=== PATIENT | male | born 1960 | race Caucasian/White ===

== ENCOUNTER 2017-05-21 07:58 | Emergency (ER) | payer BC ==
[~2017-05-21] VITALS: Ht 175.3 cm; Wt 164.6 kg
[~2017-05-21 07:58] MED LIST: IBUP-1459 PO; LISI-788 PO; SIMV-151 PO
[2017-05-21 08:05] VITALS: TEMP 36.5; Ht 175.3 cm; Wt 164.6 kg
[2017-05-21 08:52] LABS: BASO % 0.3 %; BASO ABS # 0.02 K/uL (0-0.2); COMPLETE YES; EOS % 3.3 %; HEMATOCRIT 43.6 % (42-52); IG% 0.3 %; LYMPH % 22.5 %; MEAN CORPUSCULAR HEMOGLOBIN 31.3 pg (25-34); MEAN CORPUSCULAR HGB CONC 33.3 g/dl (32-36); MONO % 11.8 %; NEUT % 61.8 %; PLATELET COUNT 134 K/uL (130-400); RED BLOOD COUNT 4.64 M/uL (4.7-6.1); WHITE BLOOD COUNT 7.54 K/uL (4.8-10.8)
[2017-05-21 09:03] LABS: INR 0.9 (0.9-1.1)
[2017-05-21] MEDS ORDERED: OMEG10007 PO (09:04)
[2017-05-21 09:14] LABS: ALB/GLOB RATIO 0.9 (0.9-2); BUN/CREATININE RATIO 22.5 (10-20); CALCIUM 8.3 mg/dl (8.5-10.1); CREATININE 0.83 mg/dl (0.60-1.40); POTASSIUM 3.9 mmol/L (3.5-5.1)
--- NOTE | 2017-05-21 09:40 | DIAGNOSTIC IMAGING REPORT ---
ULTRASOUND RIGHT LOWER EXTREMITY VENOUS CLINICAL HISTORY: Right leg pain and erythema. Swelling. COMPARISON STUDY: No priors. TECHNIQUE: Real-time, grayscale, and color Doppler sonography of the deep veins of the right lower extremity was performed from the inguinal crease to the calf. Compression and augmentation were utilized. FINDINGS: There is no sonographic evidence of deep venous thrombosis identified in the right lower extremity. The common femoral, superficial femoral, and popliteal veins are patent and normally compressible. The greater saphenous vein and the profunda femoris vein at the junction with the common femoral vein are clear. The visualized calf veins are patent. IMPRESSION: There is no sonographic evidence of deep venous thrombosis identified in the right lower extremity. Electronically signed by: Jaswinder Sebastian M.D. 05/21/2017 9:39 AM Dictated Date/Time: 05/21/2017 9:39 AM
[2017-05-21] MEDS ORDERED: CEFTRIAXONE SOD INJ 1 GM ADDVIAL IV STA (09:53)
[2017-05-21] MEDS ORDERED: CEPH500C2 PO (10:38)
[2017-05-21] MEDS ORDERED: SULF800T23 PO (10:38)
--- NOTE | 2017-05-21 10:38 | EMERGENCY ROOM VISIT NOTE ---
History First contact with patient: 08:09 Chief Complaint: LEG PAIN,LEG INJURY Stated Complaint: SORE AND WARM TO TOUCH,REDNESS LWR LEG AREA History of Present Illness Patient is a 56-year-old white male with a history significant for hypertension and dyslipidemia who presents to the emergency department accompanied by his for evaluation of right lower extremity swelling, warmth and redness. His symptoms started about 4 days ago. He actually noticed some redness in the anterior right hamm on Friday before he went to his hunting camp. There is no associated soreness or warmth time. He was at his care through the weekend, just returned yesterday. He does report that he was very active today a lot of walking well and hunting. When he returned home last night, he noted that both of his calves were swollen. He took one of his 's 20 mg furosemide tablets which did help the swelling. He normally is on lisinopril/hydrochlorothiazide 20 mg/25 mg, but has been out of this for a bout a week, and has been taking only lisinopril 20 mg. He notes that this morning, after the swelling improved with the diuretic, the anterior right hamm was sore to touch and warm, in addition to the redness that he had previously noted. He denies any fever, chills or malaise. He denies any history of cellulitis. He does have a remote history of an infected sebaceous cyst on his neck which did require hospitalization. He rates his discomfort a 1/10. He does note some minor upper respiratory symptoms which he attributes to a "head cold." He denies any chest pain, palpitations or shortness of breath. Nonsmoker. No recent prolonged travel or immobilization. He denies any symptoms in the left leg. Review of Systems Review of systems as per HPI. All other systems reviewed were negative. 10 systems reviewed. Past Medical/Surgical History Medical Problems: (1) Abscess (2) Arthritis, hip (3) Cellulitis (4) Dyslipidemia (5) HTN (hypertension) (6) Morbid obesity Surgical Problems: (1) H/O colonoscopy Electronic medical records are reviewed and summarized as above/below. See Problem List. Family History FH: COPD (chronic obstructive pulmonary disease) FH: HTN (hypertension) FH: lung disease Heart disease Social History Smoking Status: Never Smoker Alcohol Use: occasionally Marital Status: Housing Status: lives with significant other Occupation Status: employed Current/Historical Medications Scheduled Cephalexin Monohydrate (Keflex), 500 MG PO QID Fish Oil ([place]-3), 1 CAP PO DAILY Lisinopril/Hctz (Zestoretic 20MG/25MG), 1 TAB PO HS Sulfa/Trimethoprim (Bactrim Ds 800MG/160MG), 1 TAB PO BID Scheduled PRN Ibuprofen (Motrin), 400 MG PO Q6H PRN for Pain Physical Exam Vital Signs Date Time Temp Pulse Resp B/P (MAP) Pulse Ox O2 Delivery O2 Flow Rate FiO2 05/21/17 10:59 61 18 144/87 97 05/21/17 09:47 59 18 140/84 95 Room Air 05/21/17 08:05 36.5 63 20 159/92 96 Room Air Physical Exam CONSTITUTIONAL: Patient is a well-appearing obese 56-year-old female who is awake and alert and in no acute distress. Vital signs are stable. CARDIOVASCULAR: Regular rate and rhythm, with normal S1 and S2, no murmur or gallop or rub is heard. No carotid bruits auscultated. No JVD. Peripheral pulses easily palpable. RESPIRATORY: Breath sounds equal and clear to auscultation without wheezes, rales, or rhonchi heard. Full and equal chest expansion without accessory muscle use or retractions. EXTREMITIES: Examination of the bilateral lower extremities show faint chronic venous stasis changes in the anterior shins bilaterally. Examination of the right lower leg does note some increased in erythema, and warmth medially, with a petechial rash. Skin is intact. No drainage or discharge noted. There is 2 + pitting edema to the mid shins bilaterally. Calves are soft and nontender. No palpable cords. No lymphangitic streaking. Distal pulses are easily palpable. Sensation light touch is intact. LYMPH: No lymphadenopathy. Medical Decision & Procedures ER Provider Diagnostic Interpretation: ULTRASOUND RIGHT LOWER EXTREMITY VENOUS CLINICAL HISTORY: Right leg pain and erythema. Swelling. COMPARISON STUDY: No priors. TECHNIQUE: Real-time, grayscale, and color Doppler sonography of the deep veins of the right lower extremity was performed from the inguinal crease to the calf. Compression and augmentation were utilized. FINDINGS: There is no sonographic evidence of deep venous thrombosis identified in the right lower extremity. The common femoral, superficial femoral, and popliteal veins are patent and normally compressible. The greater saphenous vein and the profunda femoris vein at the junction with the common femoral vein are clear. The visualized calf veins are patent. IMPRESSION: There is no sonographic evidence of deep venous thrombosis identified in the right lower extremity. Laboratory Results 05/21/17 08:35 Red Blood Count 4.64, Mean Corpuscular Volume 94.0, Mean Corpuscular Hemoglobin 31.3, Mean Corpuscular Hemoglobin Concent 33.3, Mean Platelet Volume 10.0, Neutrophils (%) (Auto) 61.8, Lymphocytes (%) (Auto) 22.5, Monocytes (%) (Auto) 11.8, Eosinophils (%) (Auto) 3.3, Basophils (%) (Auto) 0.3, Neutrophils # (Auto ) 4.66, Lymphocytes # (Auto) 1.70, Monocytes # (Auto) 0.89, Eosinophils # (Auto ) 0.25, Basophils # (Auto) 0.02 05/21/17 08:35 Test 05/21/17 08:35 White Blood Count 7.54 K/uL (4.8-10.8) Red Blood Count 4.64 M/uL (4.7-6.1) Hemoglobin 14.5 g/dL (14.0-18.0) Hematocrit 43.6 % (42-52) Mean Corpuscular Volume 94.0 fL (80-100) Mean Corpuscular Hemoglobin 31.3 pg (25-34) Mean Corpuscular Hemoglobin Concent 33.3 g/dl (32-36) Platelet Count 134 K/uL (130-400) Mean Platelet Volume 10.0 fL (7.4-10.4) Neutrophils (%) (Auto) 61.8 % Lymphocytes (%) (Auto) 22.5 % Monocytes (%) (Auto) 11.8 % Eosinophils (%) (Auto) 3.3 % Basophils (%) (Auto) 0.3 % Neutrophils # (Auto) 4.66 K/uL (1.4-6.5) Lymphocytes # (Auto) 1.70 K/uL (1.2-3.4) Monocytes # (Auto) 0.89 K/uL (0.11-0.59) Eosinophils # (Auto) 0.25 K/uL (0-0.5) Basophils # (Auto) 0.02 K/uL (0-0.2) RDW Standard Deviation 46.9 fL (36.4-46.3) RDW Coefficient of Variation 13.6 % (11.5-14.5) Immature Granulocyte % (Auto) 0.3 % Immature Granulocyte # (Auto) 0.02 K/uL (0.00-0.02) Prothrombin Time 10.0 SECONDS (9.0-12.0) Prothromb Time International Ratio 0.9 (0.9-1.1) Activated Partial Thromboplast Time 24.9 SECONDS (21.0-31.0) Partial Thromboplastin Ratio 1.0 Anion Gap 5.0 mmol/L (3-11) Est Creatinine Clear Calc Drug Dose 152.2 ml/min Estimated GFR () 114.0 Estimated GFR (Non- 98.4 BUN/Creatinine Ratio 22.5 (10-20) Calcium Level 8.3 mg/dl (8.5-10.1) Total Bilirubin 0.4 mg/dl (0.2-1) Aspartate Amino Transf (AST/SGOT) 32 U/L (15-37) Alanine Aminotransferase (ALT/SGPT) 45 U/L (12-78) Alkaline Phosphatase 68 U/L (45-117) Total Protein 6.8 gm/dl (6.4-8.2) Albumin 3.3 gm/dl (3.4-5.0) Globulin 3.5 gm/dl (2.5-4.0) Albumin/Globulin Ratio 0.9 (0.9-2) Medications Administered Medications (Trade) Dose Ordered Sig/Macy Route Start Time Stop Time Status Last Admin Dose Admin Ceftriaxone Sodium (Rocephin Inj) 1 gm NOW STAT IV 05/21/17 09:53 05/21/17 09:54 DC 05/21/17 10:04 1 GM ED Course The patient was seen and examined as above. His old records are reviewed. IV lock was initiated. CBC with differential, coags and CMP were drawn. Ultrasound of the right lower extremity was obtained and was negative for DVT. Laboratory studies did not demonstrate leukocytosis, left shift or bandemia. He is not anemic. No gross electrolyte imbalance noted. My exam, the patient does have some evidence for an early cellulitis involving the anterior right hamm. Skin is otherwise intact. There is no evidence for abscess. DVT and superficial thrombophlebitis were also considered. He was given 1 g of ceftriaxone IV, and will be placed on Keflex and Bactrim. He is otherwise well appearing, and appears appropriate for outpatient management. He was educated on the worrisome signs or symptoms for which she should return to the emergency department. He was advised to recheck with his PCP for follow- up from the ED visit. Medical Decision See Emergency Department course. Medication Reconcilliation Current Medication List: was personally reviewed by me Blood Pressure Screening Patient's blood pressure: Normal blood pressure Blood pressure disposition: Did not require urgent referral Impression Primary Impression: Cellulitis of right lower extremity without foot Departure Information Prescriptions Sulfa/Trimethoprim (Bactrim Ds 800MG/160MG) Tab 1 TAB PO BID, #20 TAB Prov: Flor Disla PA 05/21/17 Cephalexin Monohydrate (KEFLEX) 500 Mg Cap 500 MG PO QID, #40 CAP Prov: Flor Disla PA 05/21/17 Referrals Willie Fischer M.D. (PCP) Patient Instructions [facility] Additional Instructions Cephalexin(Keflex) 500mg: Take one pill four times daily for 10 days for your skin infection. All antibiotics can cause diarrhea. If this occurs and you feel worse or it does not resolve in 1-2 days follow up with your doctor or return to the Emergency Department as this could be signs of serious underlying problems. Any medication can cause an allergic reaction, stop the pills immediately and return to the ER for rash, hives, breathing difficulties, or swelling. Trimethoprim-Sulfamethoxazole(Bactrim DS): Take one pill twice daily for 10 days for your skin infection. All antibiotics can cause diarrhea. If this occurs and you feel worse or it does not resolve in 1-2 days follow up with your doctor or return to the Emergency Department as this could be signs of serious underlying problems. Any medication can cause an allergic reaction, stop the pills immediately and return to the ER for rash, hives, breathing difficulties, or swelling. Ibuprofen(Motrin, Advil) may be used for fever or pain. Use 600mg every six hours as needed. Take with food. Avoid using more than 2400mg in a 24 hour period. Do not use 2400mg per day for more than three consecutive days without physician direction. Prolonged inappropriate use can lead to stomach upset or ulcers. (AND/OR) Acetaminophen(Tylenol) may be used for fever or pain. Use 1000mg every six hours as needed. Avoid using more than 3000mg in a 24 hour period. Warm compresses to the affected area 4 times daily for 15-20 minutes. Elevate the leg for pain and swelling. Rest and drink plenty of fluids. Continue current medications. Return to the ER for severe pain, persistent fevers, spreading redness, or any worsening of your condition. Follow up with your primary physician within 2-3 days for a recheck of the current condition.
[2017-05-21 10:59] VITALS: BP 144/87; PULSE 61; O2SAT 97
== END 2017-05-21 11:00 | disposition home or self-care (01) ==
LOC: C.EDB 08:00
DX: L03.115 Cellulitis of right lower limb (principal); I10 Essential (primary) hypertension; M16.10 Unilateral primary osteoarthritis, unspecified hip; Z98.890 Other specified postprocedural states; Z82.5 Family history of asthma and other chronic lower respiratory diseases; Z82.49 Family history of ischemic heart disease and other diseases of the circulatory system; Z79.899 Other long term (current) drug therapy

== ENCOUNTER 2021-08-17 08:43 | Inpatient (IN) ==
--- NOTE | 2021-02-12 12:59 | PAT Medication Instructions ---
Medication Instructions Date of Service February 12, 2021 Home Medications lisinopril 20 mg-hydrochlorothiazide 25 mg tablet 1 tab PO QPM tamsulosin 0.4 mg capsule 0.4 mg PO QDD ibuprofen 800 mg tablet 600 mg PO TID PRN omeprazole 20 mg tablet,delayed release 20 mg PO QAM acetaminophen 500 mg capsule 1,000 mg PO Q6H PRN ascorbic acid (vitamin C) 500 mg tablet (Vitamin C) 1,000 mg PO QAM doxycycline monohydrate 100 mg tablet 100 mg PO BID Continue as directed tamsulosin 0.4 mg capsule 0.4 mg PO QDD doxycycline monohydrate 100 mg tablet 100 mg PO BID ASK your surgeon for instructions ibuprofen 800 mg tablet 600 mg PO TID PRN DO NOT take the morning of surgery ascorbic acid (vitamin C) 500 mg tablet (Vitamin C) 1,000 mg PO QAM Take morning of surgery With a small sip of water, OTHERWISE NOTHING TO EAT OR DRINK AFTER MIDNIGHT: omeprazole 20 mg tablet,delayed release 20 mg PO QAM acetaminophen 500 mg capsule 1,000 mg PO Q6H PRN (okay to take up to 4 hours prior to surgery if needed) Take evening before surgery lisinopril 20 mg-hydrochlorothiazide 25 mg tablet 1 tab PO QPM acetaminophen 500 mg capsule 1,000 mg PO Q6H PRN (if needed) Other Notes If you have any questions please call us at [phone] or [phone] or [phone] or [phone]
--- NOTE | 2021-02-15 11:10 | Anesthesiology Consultation ---
Date of Service February 15, 2021 Assessment & Plan (1) Encounter for pre-operative examination: Chart Review Chart Review: Acceptable Risk for Surgery (pending surgeon ordered clearance, confirmed EKG and preop Covid testing ) and Patient seen in Pre Admission Testing -Awaiting surgeon ordered PCP clearance scheduled 03/06/21 and confirmed preop EKG Per PAT appt on 02/15/21, patient denies any recent travel or large group activities. Resides and works in [facility]. No known Covid positive contacts or Covid related symptoms. No known Covid infection in the past 90 days. Pt is vaccinated for Covid. Preop Covid testing scheduled 03/14/21 = will await results. Educated on importance of self quarantining, social distancing and wearing mask in public for the patient one week prior to surgery and after Covid testing done Teaching & Discussion Pre-Anesthesia Teaching/Discussion Notes: Instructed NPO after midnight before surgery,except medications with 15 cc of water. Medication instructions provided according to the PAT guidelines. History Surgery Operation Date: 03/16/21 07:15 Proposed Procedures p Left Total Hip Arthroplasty - Lawrence Spencer DO Height/Weight Height: 5 ft 10 in Weight: 135.5 kg Allergies Allergy/AdvReac Type Severity Reaction Status Date / Time Penicillins Allergy Unknown UNKNOWN Verified 02/08/21 15:05 CHILD Medications Home Medications Medication Instructions Recorded Confirmed Last Taken lisinopril 20 1 tab PO QPM 09/11/18 02/08/21 11/19/18 22:00 mg-hydrochlorothiazide 25 mg tablet tamsulosin 0.4 mg capsule 0.4 mg PO QDD 09/11/18 02/08/21 11/19/18 18:30 ibuprofen 800 mg tablet 600 mg PO TID PRN 10/15/18 02/08/21 11/18/18 omeprazole 20 mg tablet,delayed 20 mg PO QAM 10/15/18 02/08/21 11/19/18 06:00 release acetaminophen 500 mg capsule 1,000 mg PO Q6H PRN 02/08/21 02/08/21 Unknown ascorbic acid (vitamin C) 500 mg 1,000 mg PO QAM 02/08/21 02/08/21 Unknown tablet (Vitamin C) doxycycline monohydrate 100 mg 100 mg PO BID 08/19/21 08/19/21 Unknown tablet Past Medical History Medical History BPH (benign prostatic hyperplasia) 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) GERD (gastroesophageal reflux disease) CONTROLLED WITH MED HTN (hypertension) Morbid obesity Osteoarthritis Exercise / Class Metabolic Activity II 4-5 Yardwork/Stairs/Walk up hill (one flight of stairs - no chest pain or SOB ) Past Family History Family History Sister Family history of diabetes mellitus Grandmother (Paternal) Family history of diabetes mellitus Past Surgical History Surgical History History of arthroscopy RIGHT KNEE History of colonoscopy 2017 Hx of tonsillectomy Past Anesthesia History No Hx of Anesthesia Complications and No Family Hx of Anesthesia Complications History of PONV No Hx of PONV and No Hx of Motion Sickness Social History Smoking Status: Never smoker Do You Dip or Chew Tobacco: No Hx Alcohol Use: Yes Alcohol type: beer alcohol intake frequency: holidays/special occasions only ((Decreased alcohol intake since Jun 2020 trying to lose weight)) Hx Substance Use: No Review of Systems Patient denies chest pain, shortness of breath, dyspnea on exertion, cough, wheezing, palpitations. No hx of seizures, stroke, IN, apnea/snoring. No hx of blood clots or blood transfusions Physical Exam Vital Signs VITALS BP 137/83 P 66 TEMP 98.5 SP02 96% RESP 16 Constitutional no acute distress ENMT Mouth: no TMJ clicking Thyromental Distance: > or= 3.5 Finger Breadths (4.0) Mallampati Class: II Top partial plate Missing molars on bottom Neck + thick neck; neck extension not limited Respiratory normal respiratory effort; no respiratory distress Auscultation: lungs clear to auscultation bilaterally; no wheezes Cardiovascular Rate/Rhythm: regular rate and regular rhythm Heart Sounds: no murmur Vessels: no carotid bruit Musculoskeletal Spine: no pain with cervical ROM Extremities: extremities normal to inspection Psychiatric Orientation: alert Lab Results Anesthesia Preop Results Results Anesthesia Widget: WBC 5.17 K/uL (4.8-10.8) 02/15/21 Hgb 14.6 g/dL (14.0-18.0) 02/15/21 Hct 42.0 % (42-52) 02/15/21 Plt 206 K/uL (130-400) 02/15/21 Na 139 mmol/L (136-145) 02/15/21 K 3.5 mmol/L (3.5-5.1) 02/15/21 Cl 108 mmol/L (98-107) H 02/15/21 CO2 26 mmol/L (21-32) 02/15/21 BUN 27 mg/dl (7-18) H 02/15/21 Creat 0.89 mg/dl (0.6-1.4) 02/15/21 Glucose Level 127 mg/dl (70-99) H 02/15/21 PT 10.7 Seconds (9.0-12.0) 02/15/21 PTT 26.3 Seconds (21.0-31.0) 02/15/21 INR 1.1 (0.9-1.1) 02/15/21 HA1c 5.6 % (4.5-5.6) 02/15/21 Urine Color Yellow 02/15/21 Urine Appearance Clear (Clear) 02/15/21 Urine pH 5.5 (4.5-7.5) 02/15/21 Urine Specific [place] 1.018 (1.000-1.030) 02/15/21 Urine Protein Negative (Negative) 02/15/21 Urine Glucose (UA) Negative (Negative) 02/15/21 Urine Ketones 1+ (Negative) H 02/15/21 Urine Blood Negative (Negative) 02/15/21 Urine Nitrite Negative (Negative) 02/15/21 Urine Bilirubin Negative (Negative) 02/15/21 Urine Urobilinogen Negative (Negative) 02/15/21 Urine Leukocyte Esterase Negative (Negative) 02/15/21 Blood Type O Positive 02/15/21 Antibody Screen NEGATIVE 02/15/21 Testing Electrocardiogram Date: 02/15/21 Findings: + NSR @ (63bpm) Incomplete RBBB unconfirmed Chest X-Ray Date: 02/15/21 Findings: + NAD and + cardiomegaly (mild)
--- NOTE | 2021-04-23 13:11 | Anesthesiology Consultation ---
Date of Service April 23, 2021 Assessment & Plan (1) Encounter for pre-operative examination: Chart Review Chart Review: Acceptable Risk for Surgery (pending preop Covid testing results ) and Patient NOT seen in Pre Admission Testing Pt initially seen in PAT on 02/15/21- anesthesia consultation in chart from 02/15/21. Patient rescheduled to 04/27/21. Pt currently scheduled as inpatient but if surgeon decides to change patient to Outpatient Joint Program- Dr. Barboza did review chart and patient deemed an acceptable candidate for [facility] from anesthesia perspective. Pending patient is motivated, has good support and surgeon's office completes [facility] preop requirements- patient may proceed with outpatient [facility] at surgeon's discretion. Per nursing assessment 04/23/21, patient denies any recent travel. No known Covid positive contacts or Covid related symptoms. No known Covid infection in the past 90 days. Pt is vaccinated for Covid. Preop Covid testing scheduled 04/25/21= will await results. Pt seen by PCP 03/06/21= "He is medically cleared for the proposed hip replacement." Right Knee Arthroscopy, Partial medial meniscectomy, possible chondroplasty 11/20/18= Done under [facility] with Grade 2 view with MAC #4. ETT #8.0. LTA used, atraumatic insertion. History Surgery Operation Date: 04/27/21 09:15 Proposed Procedures p Left Total Hip Arthroplasty - Lawrence Spencer DO Height/Weight Height: 5 ft 10 in Weight: 129.274 kg Allergies Allergy/AdvReac Type Severity Reaction Status Date / Time Penicillins Allergy Unknown UNKNOWN Verified 04/23/21 07:33 CHILD Medications Home Medications Medication Instructions Recorded Confirmed Last Taken lisinopril 20 1 tab PO QPM 09/11/18 04/23/21 11/19/18 22:00 mg-hydrochlorothiazide 25 mg tablet tamsulosin 0.4 mg capsule 0.4 mg PO QDD 09/11/18 04/23/21 11/19/18 18:30 ibuprofen 800 mg tablet 600 mg PO TID PRN 10/15/18 04/23/21 11/18/18 omeprazole 20 mg tablet,delayed 20 mg PO QAM 10/15/18 04/23/21 11/19/18 06:00 release acetaminophen 500 mg capsule 1,000 mg PO Q6H PRN 02/08/21 04/23/21 Unknown ascorbic acid (vitamin C) 500 mg 1,000 mg PO QAM 02/08/21 04/23/21 Unknown tablet (Vitamin C) doxycycline monohydrate 100 mg 100 mg PO BID 02/08/21 04/23/21 Unknown tablet Past Medical History Medical History BPH (benign prostatic hyperplasia) 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) GERD (gastroesophageal reflux disease) CONTROLLED WITH MED HTN (hypertension) Morbid obesity Osteoarthritis Past Family History Family History Sister Family history of diabetes mellitus Grandmother (Paternal) Family history of diabetes mellitus Past Surgical History Surgical History History of arthroscopy RIGHT KNEE History of colonoscopy 2017 Hx of tonsillectomy Social History Smoking Status: Never smoker Do You Dip or Chew Tobacco: No (40 yrs ago none since) Hx Alcohol Use: No Alcohol type: beer alcohol intake frequency: holidays/special occasions only Hx Substance Use: No substance use type: does not use Lab Results Anesthesia Preop Results Results Anesthesia Widget: WBC 8.42 K/uL (4.8-10.8) 04/02/21 Hgb 16.2 g/dL (14.0-18.0) 04/02/21 Hct 48.3 % (42-52) 04/02/21 Plt 184 K/uL (130-400) 04/02/21 Na 140 mmol/L (136-145) 04/02/21 K 3.8 mmol/L (3.5-5.1) 04/02/21 Cl 104 mmol/L (98-107) 04/02/21 CO2 32 mmol/L (21-32) 04/02/21 BUN 28 mg/dl (7-18) H 04/02/21 Creat 1.00 mg/dl (0.6-1.4) 04/02/21 Glucose Level 88 mg/dl (70-99) 04/02/21 PT 10.3 Seconds (9.0-12.0) 04/02/21 PTT 26.2 Seconds (21.0-31.0) 04/02/21 INR 1.0 (0.9-1.1) 04/02/21 HA1c 5.5 % (4.5-5.6) 04/02/21 Urine Color Yellow 04/02/21 Urine Appearance Clear (Clear) 04/02/21 Urine pH 5.5 (4.5-7.5) 04/02/21 Urine Specific [place] 1.019 (1.000-1.030) 04/02/21 Urine Protein Negative (Negative) 04/02/21 Urine Glucose (UA) Negative (Negative) 04/02/21 Urine Ketones Negative (Negative) 04/02/21 Urine Blood Negative (Negative) 04/02/21 Urine Nitrite Negative (Negative) 04/02/21 Urine Bilirubin Negative (Negative) 04/02/21 Urine Urobilinogen Negative (Negative) 04/02/21 Urine Leukocyte Esterase Negative (Negative) 04/02/21 Testing Electrocardiogram Date: 02/15/21 Findings: + NSR @ (63bpm) and + no change from (September 11, 2018 per cardio ) Incomplete RBBB Chest X-Ray Date: 02/15/21 Findings: + NAD and + cardiomegaly (mild)
--- NOTE | 2021-08-15 16:00 | History & Physical Report ---
Date of Service August 15, 2021 Assessment & Plan (1) Osteoarthritis of left hip: Plan: Schedule a left SANDRA for 08.17.21. All potential risks, benefits, complications, alternatives, and rehab have been discussed with the patient and he wishes to proceed. Plan for ASA 81 mg BID x 4 wks for post op DVT prophylaxis. History of Present Illness Chief Complaint: left hip/groin pain Primary Care Provider: Willie Fischer MD This is a patient with a multi-year hx of left hip pain treated conservatively for hip DJD. His x-rays continued to worsen, and he had failed conservative management. But, his BMI remained elevated. He recently began losing weight and reached his goal of a BMI of 40. He is now being set up for surgical tx. Allergies Allergy/AdvReac Type Severity Reaction Status Date / Time Penicillins Allergy Unknown UNKNOWN Verified 08/08/21 07:37 CHILD Home Medications Medication Instructions Recorded Confirmed Type lisinopril 20 1 tab PO QPM 09/11/18 08/08/21 History mg-hydrochlorothiazide 25 mg tablet tamsulosin 0.4 mg capsule 0.4 mg PO QDD 09/11/18 08/08/21 History ibuprofen 800 mg tablet 600 mg PO TID PRN 10/15/18 08/08/21 History omeprazole 20 mg tablet,delayed 20 mg PO QAM 10/15/18 08/08/21 History release acetaminophen 500 mg capsule 1,000 mg PO Q6H PRN 02/08/21 08/08/21 History ascorbic acid (vitamin C) 500 mg 1,000 mg PO QAM 02/08/21 08/08/21 History tablet (Vitamin C) Past Med/Surg History Medical History BPH (benign prostatic hyperplasia) 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) GERD (gastroesophageal reflux disease) CONTROLLED WITH MED HTN (hypertension) Morbid obesity Osteoarthritis Surgical History History of arthroscopy RIGHT KNEE History of colonoscopy 2017 Hx of tonsillectomy Family History Sister Family history of diabetes mellitus Grandmother (Paternal) Family history of diabetes mellitus Social History (Updated 02/08/21 @ 15:28 by Amaya Barrios RN) Smoking Status: Never smoker Second Hand Exposure: Yes ( A CHILD); Hx Alcohol Use: Yes Alcohol type: beer Hx Substance Use: No Preferred Language: Hong Konger Communication Ability: Effective Waterproofer Required: No Beliefs That Will Affect Care: None Current Living Situation: Spouse current occupational status: employed current occupation: WORKS FOR [employer] Feels Safe at Home: Yes Assistive Devices: Denture - Upper and Glasses Physical Exam Constitutional: well developed, well nourished and + obese (improved weight control over the past 6-8 months); no acute distress ENMT: external ear and nose normal, oropharynx normal Neck: trachea midline Respiratory: normal respiratory effort, lungs clear to auscultation Cardiovascular: Rate/Rhythm: regular rate and regular rhythm Gastrointestinal (Abdomen): normal bowel sounds, soft, nontender, no hepatosplenomegaly Musculoskeletal: Hip: + limited ROM of hip (left internal/external rotation), + joint line tenderness (left groin) and + SEBASTIÁN test positive (left); no skin erythema and no ecchymosis Skin: no rashes, warm and dry Trauma: no evidence of skin trauma Neurologic: normal touch/pain/proprioception Psychiatric: A+Ox3, euthymic affect Speech: normal rate/rhythm/volume of speech Lymphatic: no cervical or axillary lymphadenopathy
[~2021-08-17 08:43] MED LIST changes: +ACETAMINOPHEN 500 MG TAB PO SCH; +BUPIVACAINE 0.5 % 5 MG/1 ML PF 10ML VIAL ONE; +CLINDAMYCIN 600 MG/54 ML BAG IV SCH; +CeleBREX 200 MG CAP PO SCH; +FAMOTIDINE 20 MG TAB PO SCH; +GABAPENTIN 600 MG DOSE PO SCH; -IBUP-1459 PO; +Ketorolac (*for OR use only*) 30 MG, dexAMETHasone 4 MG, KETAMINE HCL (**OR use only) 1... INFIL SCH; -LISI-788 PO; +LR 500ML BOLUS, THEN 15ML/HR IV SCH; +LR 60ML/HR IV SCH; +METOCLOPRAMIDE HCL 10 MG TABLET PO SCH; +ROPIVACAINE 0.5% HCL/PF 150 MG, BUPIVACAINE 0.75% MPF 20 ML, EPINEPHrine 30MG/30ML (OR ... INFIL SCH; +ROPIVACAINE 0.5% HCL/PF 150 MG, BUPIVACAINE 0.75% MPF 20 ML, EPINEPHrine 30MG/30ML (OR ... INSTIL SCH; -SIMV-151 PO; +TRANEXAMIC ACID 1,000 MG **IV Intra-op IV SCH; +TRANEXAMIC ACID 1,000 MG **IV Pre-op IV SCH; +VANCOMYCIN HCL 2,000 MG in SODIUM CHLORIDE 0.9% 500 ML IV SCH; +oxyCODONE HCL 10 MG TABCR (OxyCONTIN) PO SCH
[2021-08-17] MEDS ORDERED: PROPOFOL IV EMULSION 10 MG/ML 20 ML VIAL IV ONE ×6 (09:45→13:28)
[2021-08-17] MEDS ORDERED: MIDAZOLAM HCL 1 MG/ML 2ML VIAL ONE (09:45)
--- NOTE | 2021-08-17 09:47 | History & Physical Bridge Note ---
Date of Service August 17, 2021 History & Physical Bridge Note I have examined the patient, reviewed the History & Physical and in the interval since the performance of the History & Physical I have noted the following changes of clinical significance: no changes noted
[2021-08-17] MEDS ORDERED: ORTHO JOINT ANESTHETIC ONE (10:41)
[2021-08-17] MEDS ORDERED: ceFAZolin 330 MG/ML 1 GM VIAL ONE (10:41)
[2021-08-17] MEDS ORDERED: ePHEDrine sulfate 50 MG/ML AMP IV PRN (11:00)
[2021-08-17] MEDS ORDERED: ATROPINE SULFATE 0.1 MG/ML 10ML SYR IV PRN (11:00)
[2021-08-17] MEDS ORDERED: hydrALAZINE HCL 20 MG/ML VIAL ONE (11:46)
[2021-08-17] MEDS ORDERED: fentaNYL citrate 100 MCG/2 ML VIAL ONE (12:29)
[2021-08-17] MEDS ORDERED: ESMOLOL HCL INJ 10 MG/ML 10ML VIAL IV ONE (13:11)
[2021-08-17] MEDS ORDERED: ONDANSETRON INJ 2 MG/ML 2 ML VIAL ONE (13:29)
--- NOTE | 2021-08-17 14:00 | Post Operative Brief Note ---
Immediate Post Op Note v1 Date of Surgery August 17, 2021 Pre & Post Diagnosis Operation Date: 08/17/21 11:05 Pre-Op Diagnosis: Left hip osteoarthritis, Left Hip pain Post-Op Diagnosis: Left hip osteoarthritis, Left Hip pain I identified the patient and participated in the time-out.: Yes Procedure Operation Date: 08/17/21 11:05 Actual Procedures p Left Total Hip Arthroplasty-Uncemented [place] Accolade 2 size 6 femoral component, Biolox delta 36 mm x -2.5 mm femoral head, Trident 2 titanium cluster hole acetabulum 56 mm, Trident X3 10 degree polyethylene insert with 2 X 6.5 mm locking screws Lawrence Spencer DO Surgeon Lawrence Spencer DO Clinical Education Consultant Jack Ocampo PA-C Estimated Blood Loss 100 Findings Consistent with Post-Op Diagnosis Specimens Bone and tissue left hip Drains Hemovac Drain (10 fr dual trocar) Anesthesia Type MAC Spinal Regional Complications none Disposition Accompanied Patient To Recovery: No Overlapping Procedure I was present for: the critical portions of procedure. I was immediately available: during the entire case.
--- NOTE | 2021-08-17 14:12 | Anesthesiology Progress Note ---
Date of Service August 17, 2021 Anesthesia Post Procedure Vital Signs Vital Signs: Temp Pulse Resp BP Pulse Ox 08/17/21 09:17 36.7 C 55 L 18 137/72 97 Pain Intensity Left Hip: Pain Intensity: 2 Transfer of Care Handoff Completed per policy Notes Mental Status: alert / awake / arousable and participated in evaluation Patient Amnestic to Procedure: Yes Nausea / Vomiting: adequately controlled Pain: adequately controlled Airway Patency, RR, SpO2: stable & adequate BP & HR: stable & adequate Hydration State: stable & adequate Neuraxial Anesthesia: was administered and sensory block is resolving Anesthetic Complications: no major complications apparent and Pt Satisfied with anesthetic care
--- NOTE | 2021-08-17 15:00 | XRay Report ---
AP PELVIS, CROSSTABLE LATERAL LEFT HIP History: Left total hip arthroplasty. Degenerative arthritis. Postop. FINDINGS: The patient is status post a left total hip arthroplasty. The hardware is intact. No fractu re or dislocation. Skin escobar and surgical drains are in place. IMPRESSION: Left total hip arthroplasty. No evidence for hardware complication. ACT 112: Negative or not required by law. Electronically signed by: Lyndon Guajardo M.D. 08/17/2021 2:59 PM
--- NOTE | 2021-08-17 15:26 | Operative Report (OR) ---
DATE OF PROCEDURE: 08/17/2021. PREOPERATIVE DIAGNOSES: 1. Left hip osteoarthritis. 2. Left hip pain. POSTOPERATIVE DIAGNOSES: 1. Left hip osteoarthritis. 2. Left hip pain. PROCEDURE: Left total hip arthroplasty using an uncemented press-fit Neo Accolade II size 6 femoral component with a Biolox Delta 36 mm x negative 2.5 mm femoral head, Trident II Tritanium cluster hole acetabulum 56 mm, Trident X3 10- degree polyethylene insert with 2 x 6.5 mm locking screws. SURGEON: Lawrence Spencer DO. HAT BRIM AND CROWN LAMINATING OPERATOR: Jack Ocampo PA-C who was present for patient positioning, sterile prep and drape, management of retractors and instruments. He was present through the critical portions of the case including wound closure, application of sterile dressing and transport of the patient to recovery. ANESTHESIA: Spinal MAC, regional with local. SPECIMENS: Bone and tissue, left hip. DRAINS: Hemovac x2 with a Prevena drain. COMPLICATIONS: None. BLOOD LOSS: 100 mL. PERTINENT HISTORY: This is a 60-year-old gentleman who has had chronic progressive and worsening left hip pain over the last 5 years. He has been managed with anti-inflammatories, rest, modification of activities, use of an assistive device, steroid injections, topical anti-inflammatories, and shoe modification. Radiographs demonstrate severe degenerative arthritis with complete loss of joint space, marginal osteophytes, subchondral sclerosis, and subchondral cyst formation, left hip. The patient was then scheduled for surgery as indicated. All potential risks, benefits, complications, alternatives, rehab potential for incomplete relief of symptoms, need for further surgery, DVT, PE, , persistent pain, swelling, scarring, weakness, neurovascular injury, wound complications, hardware failure, nonunion, malunion, bone fracture were discussed with the patient. The patient decided to proceed with the procedure as indicated. DESCRIPTION OF PROCEDURE: The patient was taken to the Operating Suite and placed supine on the Operating Room table after identification of the consent and identification of the proper operative site the patient was sedated. The patient had previously received a spinal epidural anesthetic. The patient was then placed in the right lateral decubitus position with the affected side up and Stulberg positioning device then used to maintain lateral position of the patient. All bony prominences were properly padded and protected. Axillary roll was placed as standard and the leg lengths were determined to be essentially equal and then the left hip was then sterilely prepped and draped in the usual fashion. 10-blade scalpel incision was made laterally over the greater trochanter. The incision was deepened through the subcutaneous tissue and meticulous hemostasis with electrocautery. Further deepening of the wound through the layer of the fascia was performed with electrocautery and iliotibial band was then incised with electrocautery. Next, Charnley retractor was placed bother anteriorly and posteriorly at the level of the gluteus tendon. Next, electrocautery was used to make an incision in the vastus lateralis and then sweep was made toward the anterior aspect of the patient along the course of the femoral neck and head. Abductor split was then completed. The gluteus minimus and capsule were then incised and then soft tissue was dissected anteriorly. Next as the soft tissue was dissected anteriorly the lesser trochanter was clearly identified and hip was dislocated with relative ease. Hypertrophic osteophytes were noted circumferentially. The hip joint was noted to be noticeably tight. Next the sagittal saw was used to resect the proximal portion of the femoral neck and head approximately one fingerbreadth proximal to the lesser trochanter. Head was then removed and next the labrum was excised from the acetabulum with a 20 blade scalpel and long forceps. Next the incision was irrigated with pulsatile lavage and the pulvinar was then excised from the acetabulum. Appropriate retractors were placed anteriorly superiorly and posteriorly. Next initial acetabular reamer was placed 44 mm medialized to the medial wall and then sequential reaming was performed to size 56 mm. Trial cage was then placed and noted to be stable with excellent fit. Next the wound was irrigated with pulsatile lavage with bacitracin additive and 56 mm [place] Trident 2 tritanium cup was impacted and then two 30 mm screws were used to stabilize the acetabular shell. Next X3 poly 36 mm was impacted into the shell. Lap sponge was placed over to protect it. Next, attention was turned toward the proximal femur. Box osteotome was used to resect proximal portion of bone followed by first pass small reamer. Next, sequential broaching was performed up to size 6 and the 6 trial was placed followed by -2.5 mm x 36 mm trial head. Next, it was reduced and had excellent fit and feel with minimal shuck and excellent stability in all planes and range of motion. Leg lengths were restored and next all trial implants were removed. The wound was copiously irrigated with pulsatile lavage and uncemented press-fit [place] Accolade II size 6 femoral component with a Biolox Delta 36 mm x negative 2.5 mm femoral head, Trident II Tritanium cluster hole acetabulum 56 mm, Trident X3 10-degree polyethylene insert with 2 x 6.5 mm locking screws was impacted. The construct was reduced. Range of motion was performed and noted to be completely stable with excellent range of motion, improved to greater degree than prior to surgery. Two 10 [place] single Hemovac drains were placed exiting anterolaterally. Wound was irrigated with pulsatile lavage. Dilute sterile Betadine soak was performed for 3 minutes. Next a #5 FiberWire suture was used to close the capsule and gluteus minimum via two small bone tunnels made with 2.4 mm drill bit in the greater trochanter. After #5 FiberWire closure was completed and noted to be stable then 10 [place] drains were placed followed by closure of the vastus lateralis and the gluteus medius. This was closed with #1 Vicryl sutures. Next, the iliotibial band was closed using interrupted [id number] #1 Vicryl sutures. Next, final irrigation was performed with pulsatile lavage and dermis was closed using buried interrupted 2-0 Vicryl suture. The skin was closed with skin escobar. Sterile compressive dressing was applied. The patient was then placed supine and taken to recovery in stable condition. Job ID: [id number] [facility] MEDICAL CENTERHenrik
[2021-08-17] MEDS ORDERED: bisacodyL 10 MG SUPP PR PRN (15:49)
[2021-08-17] MEDS ORDERED: ONDANSETRON INJ 2 MG/ML 2 ML VIAL IV PRN (15:49)
[2021-08-17] MEDS ORDERED: HYDROmorphone INJ 0.5 MG/0.5 ML SYR IV PRN (15:49)
[2021-08-17] MEDS ORDERED: ALUMINUM/MAGNESIUM SUSP 30 ML UDC PO PRN (15:49)
[2021-08-17] MEDS ORDERED: MAGNESIUM HYDROXIDE SUSP 30 ML UDC PO PRN (15:49)
[2021-08-17] MEDS ORDERED: diphenhydrAMINE Capsule 25 MG CAP PO PRN (15:49)
[2021-08-17] MEDS ORDERED: METOCLOPRAMIDE HCL INJ 5 MG/ML 2 ML VIAL IV PRN (15:49)
[2021-08-17] MEDS ORDERED: NALOXONE HCL 0.4 MG/1 ML VIAL/CARP IV PRN (15:49)
[2021-08-17] MEDS ORDERED: KETOROLAC TROMETHAMINE 15 MG/ML VIAL IV PRN (15:49)
[2021-08-17] MEDS ORDERED: TAMSULOSIN HCL 0.4 MG CAP PO SCH (16:30)
[2021-08-17] MEDS: SODIUM CHLORIDE 0.9% 1000ML 1,000 ML IV SCH (18:35)
[2021-08-17] MEDS ORDERED: TRANEXAMIC ACID / 0.7% NACL 1,000 MG/100 ML BAG IV SCH (20:15)
[2021-08-17] MEDS: CLINDAMYCIN 600 MG in DEXTROSE 5% 50 ML IV SCH (20:31)
[2021-08-17] MEDS: ASPIRIN 81 MG ECTAB PO SCH (20:42)
[2021-08-17] MEDS: DOCUSATE SODIUM 100 MG CAP PO SCH (20:43)
[2021-08-17] MEDS ORDERED: SENNA 8.6 MG TAB PO SCH (21:00)
[2021-08-17] MEDS ORDERED: LISINOPRIL/HCTZ 20/25MG 1 TAB PO SCH (21:00)
[2021-08-17] MEDS: ACETAMINOPHEN 500 MG TAB PO SCH (21:21)
[2021-08-17] MEDS: oxyCODONE HCL IR 5 MG TAB (IMMEDIATE RELEASE) PO PRN (21:23)
[2021-08-18] MEDS ORDERED: SODIUM CHLORIDE 0.9% 500 ML IV ONE (03:16)
--- NOTE | 2021-08-18 03:43 | Hospitalist Consultation ---
Date of Consultation August 18, 2021 Assessment & Plan (1) Postoperative hypotension: Improved BP after fluid bolus BPH on Flomax Hyperglycemia rule out DM Continue IVF Decrease maintenance lisinopril dose to 2.5 mg daily with hold parameters Hold Flomax for SBP less than 100 Check hemoglobin A1c DVT prophylaxis. Aspirin and SCDs as per postop orthopedic orders. Thank very much for this consultation. Dr. Garcia will follow patient's progress. Text document was generated using [employer] voice recognition software. It may contain grammatical or spelling errors. Kindly contact undersigned for clarification of any documentation item in question. History of Present Illness Reason for Consultation: Hypotension Requesting Physician: Dr. Spencer Attending Physician: Lawrence Spencer DO History of Present Illness PCP : Dr. Fischer History obtained from patient and records. Medical history significant for hypertension, hyperlipidemia, BPH, Last confinement 2013 for right upper back abscess/cellulitis. Patient underwent elective left total hip arthroplasty yesterday for osteoarthritis. Tolerable pain postop. Patient denies chest pain, S OB, dizziness. SBP noted to be 80s around 3 AM. Patient does not check his blood pressure at home. Medical History as above Surgical History : Left hip arthroplasty, knee surgery, tonsillectomy/adenoidectomy Family History : Asthma, DM, COPD Personal/Social history : Non-smoker, occasional EtOH intake, [employer] employment Allergies Allergy/AdvReac Type Severity Reaction Status Date / Time Penicillins Allergy Unknown UNKNOWN Verified 08/17/21 09:15 CHILD Home Medications Medication Instructions Recorded Confirmed Type lisinopril 20 1 tab PO QPM 09/11/18 08/17/21 History mg-hydrochlorothiazide 25 mg tablet (Zestoretic) tamsulosin 0.4 mg capsule 0.4 mg PO QDD 09/11/18 08/17/21 History ibuprofen 800 mg tablet 600 mg PO TID PRN 10/15/18 08/17/21 History omeprazole 20 mg tablet,delayed 20 mg PO QAM 10/15/18 08/17/21 History release acetaminophen 500 mg capsule 1,000 mg PO Q6H PRN 02/08/21 08/17/21 History ascorbic acid (vitamin C) 500 mg 1,000 mg PO QAM 02/08/21 08/17/21 History tablet (Vitamin C) Patient History Medical History BPH (benign prostatic hyperplasia) 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) GERD (gastroesophageal reflux disease) CONTROLLED WITH MED HTN (hypertension) Morbid obesity Osteoarthritis Surgical History History of arthroscopy RIGHT KNEE History of colonoscopy 2017 Hx of tonsillectomy Family History Sister Family history of diabetes mellitus Grandmother (Paternal) Family history of diabetes mellitus Social History (Updated 02/08/21 @ 15:28 by Amaya Barrios, RN) Smoking Status: Never smoker Second Hand Exposure: Yes ( A CHILD); Hx Alcohol Use: Yes Alcohol type: beer Hx Substance Use: No Preferred Language: Sudanese Communication Ability: Effective Photogrammetric Compilation Specialist Required: No Beliefs That Will Affect Care: None Current Living Situation: Spouse current occupational status: employed current occupation: WORKS FOR [employer] Feels Safe at Home: Yes Assistive Devices: Walker Review of Systems Review of Systems: As per HPI, all 10 systems reviewed, all other ROS negative Physical Exam Physical Exam: GENERAL: Comfortable, pleasant, morbidly obese, no respiratory distress SKIN: Normal color, warm HEENT: Bespectacled, Annetta palpebral conjunctivae, no ptosis, moist buccal mucosa NECK : Supple, short neck, no tenderness CHEST : Decreased breath sounds, no tenderness HEART : Bradycardic, no obvious murmurs ABDOMEN: Some distention, nontender EXTREMITIES : Minimal LE swelling, minimal left hip tenderness, no other conspicuous deformities noted NEUROLOGIC : Coherent, no facial asymmetry, no other gross focality Results & Data Results & Data ([facility]) Vital Signs (Past 12 Hours) Vital Signs Temp Pulse Pulse Resp BP Pulse Ox 08/18/21 02:55 36.4 C L 50 L 17 82/48 L 96 08/17/21 23:21 36.6 C 63 17 93/54 L 94 08/17/21 20:26 36.7 C 67 17 111/68 95 08/17/21 18:40 36.6 C 74 18 127/77 94 08/17/21 17:21 36.6 C 95 H 18 133/79 95 Laboratory Results Laboratory Results SARS-CoV-2, RNA, NAAT NEGATIVE (NEGATIVE) 08/17/21 08:55 Blood Type O Positive 08/17/21 09:22 Antibody Screen NEGATIVE 08/17/21 09:22 Impressions Hip/Pelvis X-Ray 08/17/21 14:18 AP PELVIS, CROSSTABLE LATERAL LEFT HIP History: Left total hip arthroplasty. Degenerative arthritis. Postop. FINDINGS: The patient is status post a left total hip arthroplasty. The hardware is intact. No fracture or dislocation. Skin escobar and surgical drains are in place. IMPRESSION: Left total hip arthroplasty. No evidence for hardware complication. ACT 112: Negative or not required by law. Electronically signed by: Lyndon Guajardo M.D. 08/17/2021 2:59 PM Diagnostic Findings Laboratory Results WBC 9.31 K/uL (4.8-10.8) 08/18/21 03:57 RBC 4.32 M/uL (4.7-6.1) L 08/18/21 03:57 Hgb 13.4 g/dL (14.0-18.0) L 08/18/21 03:57 Hct 40.9 % (42-52) L 08/18/21 03:57 MCV 94.7 fL (80-100) 08/18/21 03:57 MCH 31.0 pg (25-34) 08/18/21 03:57 MCHC 32.8 g/dL (32-36) 08/18/21 03:57 RDW Std Deviation 44.9 fL (36.4-46.3) 08/18/21 03:57 RDW Coeff of Tamera 12.9 % (11.5-14.5) 08/18/21 03:57 Plt Count 146 K/uL (130-400) 08/18/21 03:57 MPV 10.6 fL (7.4-10.4) H 08/18/21 03:57 Immature Gran % (Auto) 0.2 % 08/18/21 03:57 Neut % (Auto) 75.4 % 08/18/21 03:57 Lymph % (Auto) 15.4 % 08/18/21 03:57 Miner % (Auto) 8.7 % 08/18/21 03:57 Eos % (Auto) 0.1 % 08/18/21 03:57 Baso % (Auto) 0.2 % 08/18/21 03:57 Neut # (Auto) 7.02 K/uL (1.4-6.5) H 08/18/21 03:57 Lymph # (Auto) 1.43 K/uL (1.2-3.4) 08/18/21 03:57 Miner # (Auto) 0.81 K/uL (0.11-0.59) H 08/18/21 03:57 Eos # (Auto) 0.01 K/uL (0-0.5) 08/18/21 03:57 Baso # (Auto) 0.02 K/uL (0-0.2) 08/18/21 03:57 Immature Gran # (Auto) 0.02 K/uL (0.00-0.02) 08/18/21 03:57 Sodium 138 mmol/L (136-145) 08/18/21 03:57 Potassium 4.1 mmol/L (3.5-5.1) 08/18/21 03:57 Chloride 106 mmol/L (98-107) 08/18/21 03:57 Carbon Dioxide 28 mmol/L (21-32) 08/18/21 03:57 Anion Gap 4 (3-11) 08/18/21 03:57 BUN 25 mg/dl (6-23) H 08/18/21 03:57 Creatinine 0.86 mg/dl (0.6-1.4) 08/18/21 03:57 Est Cr Clr Drug Dosing 124.5 ml/min 08/18/21 03:57 Est GFR ( Amer) 109.2 ml/min 08/18/21 03:57 Est GFR (Non-Af Amer) 94.3 ml/min 08/18/21 03:57 BUN/Creatinine Ratio 29.1 (10-20) H 08/18/21 03:57 Glucose 115 mg/dl (70-99(Fasting)) H 08/18/21 03:57 Lactate 1.2 mmol/L (0.4-2.0) 08/18/21 03:57 Calcium 8.0 mg/dl (8.5-10.1) L 08/18/21 03:57 Magnesium 1.7 mg/dl (1.7-2.4) 08/18/21 03:57 TSH 1.044 uIu/ml (0.300-4.500) 08/18/21 03:57 SARS-CoV-2, RNA, NAAT NEGATIVE (NEGATIVE) 08/17/21 08:55 Blood Type O Positive 08/17/21 09:22 Antibody Screen NEGATIVE 08/17/21 09:22 Impressions Hip/Pelvis X-Ray 08/17/21 14:18 AP PELVIS, CROSSTABLE LATERAL LEFT HIP History: Left total hip arthroplasty. Degenerative arthritis. Postop. FINDINGS: The patient is status post a left total hip arthroplasty. The hardware is intact. No fracture or dislocation. Skin escobar and surgical drains are in place. IMPRESSION: Left total hip arthroplasty. No evidence for hardware complication. ACT 112: Negative or not required by law. Electronically signed by: Lyndon Guajardo M.D. 08/17/2021 2:59 PM EKG as per my interpretation rate 50, sinus bradycardia, T wave abnormalities inferior leads
[2021-08-18] MEDS: CLINDAMYCIN 600 MG in DEXTROSE 5% 50 ML IV SCH (03:49)
[2021-08-18 04:09] LABS: Mean Corpuscular Hgb Conc 32.8 g/dL (32-36); Mean Platelet Volume 10.6 fL (7.4-10.4); Platelet Count 146 K/uL (130-400)
[2021-08-18 04:28] LABS: BUN Creatinine Ratio 29.1 (10-20); Creatinine Clr Calc Pharmacy 124.5 ml/min; Est GFR (African American) 109.2 ml/min; Est GFR (Non-African American) 94.3 ml/min; Magnesium 1.7 mg/dl (1.7-2.4); Potassium 4.1 mmol/L (3.5-5.1)
[2021-08-18] MEDS: SODIUM CHLORIDE 0.9% 1000ML 1,000 ML IV SCH ×2 (04:31→04:44)
[2021-08-18] MEDS ORDERED: SODIUM CHLORIDE 0.9% 1000ML 1,000 ML IV ONE (04:34)
[2021-08-18 05:01] LABS: Basophils # (auto) 0.02 K/uL (0-0.2); Basophils % (auto) 0.2 %; Eosinophils # (auto) 0.01 K/uL (0-0.5); Eosinophils % (auto) 0.1 %; Hematocrit (blood only) 40.9 % (42-52); Hemoglobin 13.4 g/dL (14.0-18.0); Immature Granulocytes # (auto) 0.02 K/uL (0.00-0.02); Immature Granulocytes % (auto) 0.2 %; Lymphocytes # (auto) 1.43 K/uL (1.2-3.4); Lymphocytes % (auto) 15.4 %; Mean Corpuscular Volume 94.7 fL (80-100); Monocytes # (auto) 0.81 K/uL (0.11-0.59); Monocytes % (auto) 8.7 %; Neutrophils # (auto) 7.02 K/uL (1.4-6.5); Neutrophils % (auto) 75.4 %; RDW Coefficient of Variation 12.9 % (11.5-14.5); RDW Standard Deviation 44.9 fL (36.4-46.3); Red Blood Count 4.32 M/uL (4.7-6.1); White Blood Count 9.31 K/uL (4.8-10.8)
[2021-08-18] MEDS: ACETAMINOPHEN 500 MG TAB PO SCH ×2 (06:22→14:19)
[2021-08-18 07:00] LABS: Estimated Average Glucose 114 mg/dl; Hemoglobin A1C 5.6 % (4.5-5.6)
[2021-08-18] MEDS: ASPIRIN 81 MG ECTAB PO SCH (08:40)
[2021-08-18] MEDS: DOCUSATE SODIUM 100 MG CAP PO SCH (08:40)
[2021-08-18] MEDS ORDERED: PANTOprazole 40 MG TAB PO SCH (09:00)
[2021-08-18] MEDS ORDERED: MULTIVITAMIN TAB PO SCH (09:00)
[2021-08-18] MEDS ORDERED: ASCORBIC ACID 500 MG TAB PO SCH (09:00)
--- NOTE | 2021-08-18 10:36 | Electrocardiogram Report ---
Test Reason : Blood Pressure : / mmHG Vent. Rate : 049 BPM Atrial Rate : 049 BPM P-R Int : 166 ms QRS Dur : 112 ms QT Int : 484 ms P-R-T Axes : 047 024 021 degrees QTc Int : 437 ms Sinus bradycardia Otherwise normal ECG When compared with ECG of 15-FEB-2021 11:23, No significant change was found Confirmed by Ranjeet Alcaraz ([id number]) on 08/18/2021 10:35:39 AM Referred By: Lawrence Spencer Confirmed By:Ranjeet Alcaraz
--- NOTE | 2021-08-18 10:41 | Orthopedic Progress Note ---
Date of Service August 18, 2021 Assessment & Plan (1) Osteoarthritis of left hip: Plan: POD #1 Left SANDRA will continue to follow today with medicine to be sure BP remains stable Will plan for discharge tomorrow if stable. HH, ASA, SCDs. Admission and Anticipated Discharge Date Admission Date: August 17, 2021 Supervising Physician Co-Signing Physician Notes Patient seen at bedside today . BP has improved , he is asymptomatic, no CP. Is having minimal surgical pain. He would like DC to home. Will plan for DC to home this afternoon. Subjective POD #1 resting comfortably in bed. He notes an episode of low bp overnight but was asymptomatic. Seen by hospitalist this am. denies cp, sob. dizziness. Physical Exam Physical Exam: Toes mobile, NVI. Calves soft, non tender. Dressing in place to left hip and prevena vac Results & Data ([facility]) Vital Signs (Past 12 Hours) Vital Signs Temp Pulse Pulse Resp BP Pulse Ox 08/18/21 07:40 36.6 C 52 L 16 108/67 99 08/18/21 04:31 54 L 97/59 L 08/18/21 02:55 36.4 C L 50 L 17 82/48 L 96 08/17/21 23:21 36.6 C 63 17 93/54 L 94
[2021-08-18] MEDS: oxyCODONE HCL IR 5 MG TAB (IMMEDIATE RELEASE) PO PRN (14:19)
--- NOTE | 2021-08-18 14:27 | Hospitalist Progress Note ---
Date of Service August 18, 2021 Assessment & Plan (1) Postoperative hypotension: Plan: Improved BP after fluid bolus BPH on Flomax Hyperglycemia rule out DM Continue IVF Decrease maintenance lisinopril dose to 2.5 mg daily with hold parameters Hold Flomax for SBP less than 100 Check hemoglobin A1c DVT prophylaxis. Aspirin and SCDs as per postop orthopedic orders. Thank very much for this consultation. Dr. Garcia will follow patient's progress. Text document was generated using [employer] voice recognition software. It may contain grammatical or spelling errors. Kindly contact undersigned for clarification of any documentation item in question. Admission and Anticipated Discharge Date Admission Date: August 17, 2021 Results & Data Results & Data ([facility]) Vital Signs (Past 12 Hours) Vital Signs Temp Pulse Pulse Resp BP Pulse Ox 08/18/21 14:21 36.6 C 52 L 16 108/67 99 08/18/21 07:40 36.6 C 52 L 16 108/67 99 08/18/21 04:31 54 L 97/59 L 08/18/21 02:55 36.4 C L 50 L 17 82/48 L 96 Laboratory Results Short CBC 08/18/21 Range/Units 03:57 WBC 9.31 (4.8-10.8) K/uL Hgb 13.4 L (14.0-18.0) g/dL Hct 40.9 L (42-52) % Plt Count 146 (130-400) K/uL BMP 08/18/21 03:57 Sodium 138 Potassium 4.1 Chloride 106 Carbon Dioxide 28 BUN 25 H Creatinine 0.86 Glucose 115 H Calcium 8.0 L Medications Administered Current Inpatient Medications Acetaminophen (Acetaminophen 500 Mg Tab) 1,000 mg PO Q8 [facility] Stop: 09/16/21 21:59 Last Admin: 08/18/21 14:19 Dose: 1,000 mg Documented by: Al Hydrox/Mg Hydrox/Simethicone (Aluminum/Magnesium Susp 30 Ml Udc) 15 ml PO Q4H PRN PRN Reason: Heartburn Stop: 09/16/21 15:48 Ascorbic Acid (Ascorbic Acid 500 Mg Tab) 1,000 mg PO QAM [facility] Stop: 09/17/21 08:59 Last Admin: 08/18/21 08:40 Dose: 1,000 mg Documented by: Aspirin (Aspirin 81 Mg Ectab) 81 mg PO BID [facility] Stop: 09/16/21 20:59 Last Admin: 08/18/21 08:40 Dose: 81 mg Documented by: Bisacodyl (Bisacodyl 10 Mg Supp) 10 mg ID DAILY PRN PRN Reason: Constipation Stop: 09/16/21 15:48 Celecoxib (Celebrex 200 Mg Cap) 200 mg PO BID [facility] Stop: 09/17/21 20:59 Diphenhydramine HCl (Diphenhydramine Capsule 25 Mg Cap) 25 mg PO Q8H PRN PRN Reason: Itching Stop: 09/16/21 15:48 Docusate Sodium (Docusate Sodium 100 Mg Cap) 100 mg PO BID [facility] Stop: 09/16/21 20:59 Last Admin: 08/18/21 08:40 Dose: 100 mg Documented by: Hydromorphone HCl (Hydromorphone Inj 0.5 Mg/0.5 Ml Syr) 0.5 mg IV Q2H PRN PRN Reason: Pain or Pre PT Stop: 08/31/21 15:48 Sodium Chloride (Nss 1000ml) 1,000 mls @ 100 mls/hr IV .Q10H ONE Stop: 08/18/21 14:33 Last Infusion: 08/18/21 14:27 Dose: Infused Documented by: Ketorolac Tromethamine (Ketorolac Tromethamine 15 Mg/Ml Vial) 15 mg IV Q6H PRN PRN Reason: Breakthrough Pain Stop: 08/18/21 15:48 Lisinopril (Lisinopril 2.5 Mg Tab) 2.5 mg PO HS [facility] Stop: 09/17/21 20:59 Magnesium Hydroxide (Magnesium Hydroxide Susp 30 Ml Udc) 30 ml PO Q6H PRN PRN Reason: Constipation Stop: 09/16/21 15:48 Metoclopramide HCl (Metoclopramide Hcl Inj 5 Mg/Ml 2 Ml Vial) 10 mg IV Q6H PRN PRN Reason: Nausea And Vomiting Stop: 09/16/21 15:48 Multivitamins (Multivitamin Tab) 1 tab PO QAM [facility] Stop: 09/17/21 08:59 Last Admin: 08/18/21 08:40 Dose: 1 tab Documented by: Naloxone HCl (Naloxone Hcl 0.4 Mg/1 Ml Vial/Carp) 0.1 mg IV Q5M PRN PRN Reason: Oversedation/Resp Depression Stop: 09/16/21 15:48 Ondansetron HCl (Ondansetron Inj 2 Mg/Ml 2 Ml Vial) 4 mg IV Q6H PRN PRN Reason: Nausea And Vomiting Stop: 09/16/21 15:48 Oxycodone HCl (Oxycodone Hcl Ir 5 Mg Tab (Immediate Release)) 5 - 10 mg PO Q4H PRN PRN Reason: Pain or Pre PT Stop: 08/31/21 15:48 Last Admin: 08/18/21 14:19 Dose: 5 mg Documented by: Pantoprazole Sodium (Pantoprazole 40 Mg Tab) 40 mg PO [facility]; Protocol Stop: 09/17/21 08:59 Last Admin: 08/18/21 08:40 Dose: 40 mg Documented by: Sennosides (Senna 8.6 Mg Tab) 17.2 mg PO [facility] Stop: 09/16/21 20:59 Last Admin: 08/17/21 20:42 Dose: 17.2 mg Documented by: Tamsulosin HCl (Tamsulosin Hcl 0.4 Mg Cap) 0.4 mg PO QDD [facility] Stop: 09/16/21 16:29 Last Admin: 08/17/21 18:36 Dose: 0.4 mg Documented by:
[2021-08-18] MEDS ORDERED: CeleBREX 200 MG CAP PO SCH (21:00)
[2021-08-18] MEDS ORDERED: lisinopril 2.5 MG TAB PO SCH (21:00)
--- NOTE | 2021-08-24 14:29 | Discharge Summary ---
Date of Service August 24, 2021 Admission HPI Per Admitting Provider This is a patient with a multi-year hx of left hip pain treated conservatively for hip DJD. His x-rays continued to worsen, and he had failed conservative management. But, his BMI remained elevated. He recently began losing weight and reached his goal of a BMI of 40. He is now being set up for surgical tx. Principal Diagnosis left hip osteoarthritis Discharge Exam Constitutional well developed, well nourished and + obese (improved weight control over the past 6-8 months); no acute distress ENMT external ear and nose normal, oropharynx normal Neck trachea midline Respiratory normal respiratory effort, lungs clear to auscultation Cardiovascular Rate/Rhythm: regular rate and regular rhythm Gastrointestinal (Abdomen) normal bowel sounds, soft, nontender, no hepatosplenomegaly Musculoskeletal Hip: + surgical incision (left hip with Prevena in place); no skin erythema and no ecchymosis Skin no rashes, warm and dry Trauma: no evidence of skin trauma Neurologic normal touch/pain/proprioception Psychiatric A+Ox3, euthymic affect Speech: normal rate/rhythm/volume of speech Lymphatic no cervical or axillary lymphadenopathy Discharge Data Allergies Allergy/AdvReac Type Severity Reaction Status Date / Time Penicillins Allergy Unknown UNKNOWN Verified 08/17/21 09:15 CHILD Consultations 08/17/21 15:35 Consult Radiation Oncology Routine 08/18/21 03:12 Consult Hospitalist Routine Procedures Performed Operation Date: 08/17/21 11:05 Actual Procedures p Left Total Hip Arthroplasty-Uncemented(Left) - Lawrence Spencer DO Hospital Course (1) Osteoarthritis of left hip: POD #1 Left SANDRA will continue to follow today with medicine to be sure BP remains stable Will plan for discharge tomorrow if stable. HH, ASA, SCDs. Total Time Total Time Spent Total Time Spent (In Minutes): 30 Discharge Plan Discharge Items Patient Disposition: Home - Home Health Services Reason For Visit: POSTSURGICAL CARE L-SANDRA Discharge Diagnosis: Left hip osteoarthritis Activity: Per Instructions section Non-emergency contact: Surgeon Call non-emergency contact if: your pain is not controlled, your pain is worsening and your temperature is above 101 Follow-up/Referrals: Shelley Mijares MD [Physician] - (Follow up on Friday, 08.20.21, at 10:45 AM for a prophylactic radiation treatment for the hip. [facility] Willie Fischer MD [Primary Care Provider] - Diet: Regular Addtl Attending Provider Instructions: ACTIVITY RECOMMENDATIONS: SELF CARE INSTRUCTIONS AFTER TOTAL HIP REPLACEMENT Until the incision and soft tissues around your hip have healed, there is a possibility that the hip prosthesis could dislocate. A. Observe the following precautions to prevent dislocation: 1. Don't bend your hip greater than 90 degrees. 2. Avoid crossing your legs or ankles while standing or lying. 3. Sit with your feet placed 6 inches apart. 4. When sitting, keep your knees below your hips. Sit on a firm surface, avoid deep, soft chairs and couches. Use an elevated toilet seat in the bathroom. 5. Don't bend over at the waist. Use a long handled shoehorn and a sock aid to help you put on your shoes and socks. A grocery cashier can help you molded goods spot picker objects that are too high or too low to reach. 6. Keep car riding to a minimum for at least one month after surgery. B. Your balance may be shaky for a while. Use crutches or a walker until directed by your doctor. C. Use hand rails when walking on stairs. D. Wear low heeled shoes with non-slip soles. E. Be sure that your floors are free of things that could trip you - throw rugs, electrical cords, small objects. Avoid wet and waxed floors, especially with crutches and canes. F. Try to walk several times a day with rest periods between. G. Continue with all the exercises taught to you in the hospital. Again, make walking a part of your daily routine. H. It is okay to shower if minimal to no drainage from incision. No baths. Do not soak wound. I. Physical Therapy as instructed by your Physician. J. Prevena dressing: You have a Prevena dressing on your surgical wound. It will remain in place for 7 days from surgery. You will be provided with a booklet with the do's and don'ts with the dressing in place. After 7 days, the dressing may be removed. If there is drainage from the surgical incision, you may cover the wound with dry dressings SPECIAL CARE INSTRUCTIONS: VERY IMPORTANT TO READ AND REVIEW A. You may still be at risk for phlebitis and blood clots. 1. Wear surgical stockings (KEVIN hose) for one month, 20 hours daily, after surgery to improve circulation and reduce swelling. 2. Take Aspirin (blood thinning medications), as directed by your doctor. 3. Have a pro-time (blood test) drawn according to your doctor's instructions. B. We encourage and will assist you in choosing a home-health agency of your choice. Home health nurses and therapists will monitor your temperature, wound healing and progress in exercise and walking. Home health nurses may also draw the blood for the pro-time test. They may instruct you in decreasing or increasing the amount of Coumadin you take. C. You must take antibiotics before having dental work, bladder, bowel and other surgery. Your doctor will provide you with a permanent card to carry describing precautions. D. Call [facility] if you have a temperature of 101 or greater, redness or swelling around the incision, cloudy drainage from incision, or sudden increase in pain in your hip, not relieved by your regular pain medication. E. Please call the office at if you have any concerns or questions about your operation or recovery. FOLLOW UP VISIT: If appointment is not already scheduled: Please call [facility] to make a follow-up appointment for 2 weeks after your surgery at . Pending Studies at Discharge: No Stand-Alone Forms: My [facility], Opioid Pain Management, Smoking Cessation Medications and DC Order Prescriptions: New celecoxib [Celebrex] 200 mg Capsule 200 mg PO BID 30 Days Qty: 60 RF: 0 aspirin 81 mg Tablet,Delayed Release (Dr/Ec) 81 mg PO BID 30 Days Qty: 60 RF: 0 lisinopril 2.5 mg Tablet 2.5 mg PO HS Qty: 30 RF: 0 oxycodone 5 mg Tablet 5 - 10 mg PO Q4H PRN (Reason: pain (scale score 4-6)) Qty: 30 RF: 0 sennosides [Senokot] 8.6 mg Tablet 17.2 mg PO HS Qty: 30 RF: 0 multivitamin with folic acid [Daily-Thelma (with folic acid)] 400 mcg Tablet 1 tab PO QAM Qty: 30 RF: 0 Continued tamsulosin 0.4 mg Capsule 0.4 mg PO QDD RF: 0 omeprazole 20 mg Tablet,Delayed Release (Dr/Ec) 20 mg PO QAM RF: 0 ascorbic acid (vitamin C) [Vitamin C] 500 mg Tablet 1,000 mg PO QAM RF: 0 Discontinued lisinopril-hydrochlorothiazide [Zestoretic] 20-25 mg Tablet 1 tab PO QPM RF: 0 ibuprofen 800 mg Tablet 600 mg PO TID PRN (Reason: Pain) RF: 0 acetaminophen [Tylenol Extra Strength] 500 mg Capsule 1,000 mg PO Q6H PRN (Reason: Pain) RF: 0 No Action acetaminophen [Tylenol Extra Strength] 500 mg tablet 1,000 mg PO Q8H PRNRF: 0 Discharge Orders: Discharge Order (Routine); Ordered 08/18/21 Ordered By: Maribel bIarra/Other Patient Handouts: DVT Post Op Prevention, Hip Precautions Admission Data Admit Date/Time: 08/17/21 14:18 Attending Provider: Lawrence Spencer Admit Provider: Lawrence Spencer Primary Care Provider: Willie Fischer Other Providers: Emmanuel Cervantes ; Tati Garcia ; Jorge Castillo ; Tej Mchugh [facility] Other Interventions: Discharge Summary Assessment (RN) Last Done: 08/18/21 14:21
== END 2021-08-18 15:12 | disposition home health service (06) | DRG 470 ==
LOC: 3E 08:43 → ASU 08:43 → OBSVTOIN 14:18